=== PATIENT | female | born 2000 | race Caucasian/White ===

== ENCOUNTER 2022-10-01 07:48 | Emergency (ER) | payer BC ==
--- OUTSIDE RECORDS SUMMARY | 2022-10-01 07:53 | XMS REPORT | Continuity of Care Document ---
:2000 Author Organization [facility] t Address [address] [place] [address] Care Team Providers Name Role Phone MISAEL BRICEÑO Primary Care Physician Unavailable Mani Padron Attending Clinician Unavailable KATJA BUSCH Attending Clinician Unavailable Misael Briceño MD Attending Clinician MISAEL BRICEÑO Attending Clinician Unavailable Doctor Unassigned, [place] Attending Clinician Unavailable Katja Busch PA-C Attending Clinician Arya Alvarez CRNA Attending Clinician Nati Gutierrez CRNA Attending Clinician Carmelina Thomas MD, Leonard Attending Clinician Only, Adc Test Attending Clinician Unavailable 2, Adc Lab Attending Clinician Unavailable Ultrasound, Adc Mfm Attending Clinician Unavailable Reed Hoffman MD Attending Clinician Ultrasound, Ang-Mfm Attending Clinician Unavailable Louisa Hughes MD Attending Clinician Yonas Beckman MD Attending Clinician Daphne Scott MD Attending Clinician DAPHNE SCOTT Attending Clinician Unavailable MISAEL BRICEÑO Admitting Clinician Unavailable DERICK RIOS Admitting Clinician Unavailable Misael Briceño MD Admitting Clinician Payers Payer Name Policy Type Policy Number Effective Date Expiration Date S arnav [facility] [id number] 2020 00:00:00 [facility] [id number] 2020 00:00:00 [facility] [id number] 2015 PPO 00:00:00 Problems Condition Condition Condition Status Onset Resolution Last Treating Co mments Source Name Details Category Date Date Treatment Clinician Date Nexplanon Nexplanon Disease Active 2020-[address] in place 0-12 ity of 00:00: [address] Allergies, Adverse Reactions, Alerts Allergy Allergy Status Severity Reaction(s) Onset Inactive Treating Comm ents Source Name Type Date Date Clinician No Known DA Active U 2020-0 [facility] 00 [facility] No Known DA Active U 2020-0 [facility] All[facility]ie 6[facility] 00 [facility] NO KNOWN Drug Active Univers ALLERGIE Class ity of S [facility] Social History Social Habit Start Date Stop Date Quantity Comments Source Exposure to Not sure University of SARS-CoV-2 [place] [facility] (event) Branch History SDME University o f Alcohol Frequency [place] [facility] History [facility] University o f Alcohol Std [place] [facility] Drinks Branch History [facility] University o f Alcohol Binge [place] [facility] Alcohol intake 2021-07-14 2021-07-14 Ex-drinker University of 00:00:00 00:00:00 (finding) [facility] Tobacco use and 2020-09-15 2020-09-15 Never used Universit y of exposure 00:00:00 00:00:00 [facility] Alcohol Comment 2019-06-13 2019-06-13 every weekend Univer sity of 00:00:00 00:00:00 [facility] Sex Assigned At [birth year] Universit y of 00:00:00 00:00:00 [facility] Smoking Status Start Date Stop Date Source Never smoker [facility] Medications Ordered Filled Start Stop Current Ordering Indication Dosage Frequency Signature Comments Components Source Medication Medication Date Date Medication? Clinician (SIG) Name Name etonogestre 2020-10- No [id number] 68mg Univers L 0-12 10-12 ity of (NEXPLANON) 23:15: 22:09 [place] implant 68 00 :00 Medical mg Branch etonogestre 2020-10- No [id number] 68mg 68 mg, Univers L 0-12 10-12 Subdermal, ity of (NEXPLANON) 23:15: 22:09 ONCE NOW, [place] implant 68 00 :00 1 dose, On Med ical mg e Branch 07/14/21 at 1815, Routine
Use approved by: WEB PRESS OPERATOR No known 2020-10 No Univers medications 0-12 ity of 17:07: [address] Branch acetaminoph 2020- No [id number] 650mg Take 2 Univers en 325 mg 8-11 10-12 tablets by ity of tablet 00:00: 00:00 mouth [place] 00 :00 every 6 Medical (six) Branch hours as needed for Pain (scale 1-3) or Pain (scale 4-6). 2020- No [id number] 1{tbl} Take 1 Univers vitamin 8-11 10-12 tablet by ity of w/FA tablet 00:00: 00[place] :[place] daily. Medical [place] ferrous 2020- No [id number] 325mg Take 1 Un laila sulfate 325 8-11 10-12 tablet by it y of mg (65 mg 00:00: 00:00 [place] iron) 00 :00 (two) Medical tablet times Branch daily. ibuprofen 2020- No [id number] 600mg Take 1 Univers 600 mg 8-11 10-12 tablet by ity of tablet 00:00: 00:00 mouth [place] 00 :00 every 6 Medical (six) Branch hours as needed (Pain). Take with food or milk. Immunizations Ordered Filled Immunization Date Status Comments Sourc e Immunization Name Name Rho (d) Immune 2021-05-12 Completed University of Globulin 00:00:00 [facility] Rho (d) Immune 2021-05-12 Completed University of Globulin 00:00:00 [facility] TDAP 2021-02-18 Completed University of 00:00:00 [facility] Rho (d) Immune 2021-02-18 Completed University of Globulin 00:00:00 [facility] TDAP 2021-02-18 Completed University of 00:00:00 [facility] Rho (d) Immune 2021-02-18 Completed University of Globulin 00:00:00 [facility] Rho (d) Immune 2020-10-09 Completed University of Globulin 00:00:00 [facility] Rho (d) Immune 2020-10-09 Completed University of Globulin 00:00:00 [facility] Influenza Virus 2020-10-01 Completed Universit y of Vaccine Quad .5 mL 00:00:00 [facility] 6+ [place] Branch Influenza Virus 2020-10-01 Completed Universit y of Vaccine [place] .5 mL 00:00:00 [facility] 6[facility] [place] Vital Signs Vital Name Observation Time Observation Value Comments Source Systolic blood 2021-07-14 21:17:00 108 mm[Hg] Univer sity of pressure [facility] Diastolic blood 2021-07-14 21:17:00 68 mm[Hg] Unive rsity of pressure [facility] Heart rate 2021-07-14 21:17:00 72 /min [facility] Body temperature 2021-07-14 21:17:[address] [facility] Res[facility] rate 2021-07-14 21:17:00 16 /min [facility] Body height 2021-07-14 21:17:00 149.9 cm [facility] Body weight 2021-07-14 21:17:00 76.658 kg [facility] BMI 2021-07-14 21:17:00 34.13 kg/m2 [facility] Procedures Procedure Date / Time Performing Clinician Source Performed POCT TEST 2021-07-14 21:18:00 Misael Briceño [facility] CONSENT FOR 2021-07-14 05:01:00 Doctor Unassday, Filomena Mezaer [facility] [place] CONTRACEPTION Name [facility] [id number] 2020-04-18 00:00:00 STOGR [facility] [id number] 2020-04-18 00:00:00 [facility] En[facility] Start End Encounter Admission Attending Care Care Encounter Source Date/Time Date/Time Type Type Clinicians Facility Department ID 2021-08-03 Outpatient P [facility] CELSO [id number] Univers 13:20:06 ity [facility] 2021-08-01 Emergency [facility] [id number] Univers 15:35:00 ity [facility] 2020-04-18 Inpatient HASMUKH Padron, JONELTO DAYS [id number] [facility] 13:00:00 Mani [facility] [place] [facility] 2021-12-07 2021-12-07 Outpatient Ena BUSCH [facility] [id number] Univers 14:00:00 14:00:00 [facility] 2021-07-14 2021-07-14 Office Misael Briceño [facility] [id number] Univers 15:58:42 16:49:23 Visit Todd Armenta [id number] i [place] [id number] [phone] In dical [address] 2021-07-14 2021-07-14 Outpatient R MISAEL BRICEÑO [facility] [id number] Univers 16:00:00 16:00:00 ity [facility] 2021-07-14 2021-07-14 Orders Doctor SANDOVAL [id number] Univers 00:00:00 00:00:00 Only Unassigned, EVERARDO 350.1.13.10 ity of [place] [facility] [id number] Shadi as [phone] [address] 2021-07-13 2021-07-13 Outpatient R MISAEL BRICEÑO [facility] [id number] Univers 09:00:00 09:00:00 ity [facility] 2021-07-08 2021-07-08 Telephone Misael Briceño [facility] 1.2.840.114 [id number] Univers 00:00:00 00:00:00 Cam Kathi [id number] i [id number] [phone] [address] 2021-06-22 2021-06-22 Outpatient R NARAYAN [facility] [id number] Univers 08:30:00 08:30:00 KATJA [facility] 2021-06-18 2021-06-18 Office [facility] [id number] [id number] Univers 09:49:45 10:12:49 Visit Todd Armenta 350.1.13.10 i [place] [id number] [phone] [address] 2021-06-18 2021-06-18 Outpatient R NAVARRO MISAEL [facility] [id number] Univers 09:45:00 09:45:00 ity [facility] 2021-06-09 2021-06-09 [facility] 1.2.120.178 [id number] Univers 11:15:24 11:57:47 Katja Armenta 350.1.13.10 ity of [id number] [phone] [address] 2021-06-09 2021-06-09 [facility] 1.2.072.075 [id number] Univers 11:15:24 11:57:47 Katja Armenta 350.1.13.10 ity [place] [phone] [address] 2021-06-09 2021-06-09 Outpatient R NARAYAN [facility] [id number] Univers 11:15:00 11:15:00 KATJA ornelas [facility] 2021-06-09 2021-06-09 Telephone Narayan [facility] 1.2.840.114 [id number] Univers 00:00:00 00:00:00 Katja Tri[place]i 350.1.13.10 i [place] 4[place] [phone] In dical nal [address] [place] [address] 2021-06-09 2021-06-09 [facility]phone [facility] 1.2.840.114 [id number] Univers 00:00:00 00:00:00 Katja Tripoli 350.1.13.10 i [place] [id number] [phone] In dical nal [address] [place] [address] 2021-05-18 2021-05-18 Routine Misael Briceño [facility] [id number] Univers 09:13:02 10:46:42 Todd Armenta [id number] ity of Visit [id number] [phone] [address] 2021-05-18 2021-05-18 Outpatient R MISAEL BRICEÑO [facility] [id number] Univers 09:00:00 09:00:00 ity of [facility] 2021-05-11 2021-05-13 Hospital Misael Briceño [facility] 1.2.840.114 [id number] Univers 04:04:00 13:20:00 Encounter Todd Armenta 350.1.13.10 [place] [phone] [address] 2021-05-12 2021-05-12 Anesthesia [facility] 1.2.840.114 [id number] Univers 20:03:16 20:03:16 Event Arya Armenta 350.1.13.10 i [place] [phone] [address] 2021-05-11 2021-05-11 Anesthesia Nati Gutierrez [facility] 1.2. 840.114 [id number] Univers 15:17:00 20:07:00 Event Rafael Cosmeton 350.1.13.10 ity of [place] 4.2.7.2.686 [facility] [phone] [facility] 083 Branch 2021-05-11 2021-05-11 Surgery Misael Briceño [facility] 1.2.478.786 [id number] Univers 00:00:00 00:00:00 Cam Tripoli 350.1.13.10 i ty of [place] 4.2.7.2.686 [facility] [phone] [facility] 013 Branch 2021-05-08 2021-05-08 Laboratory Only, Adc Test [facility] 1.2.840. 114 [id number] Univers 14:45:08 15:00:08 Only Misael Briceño Todd Armenta 350.1.13.10 ity of [place] 4.2.7.2.686 [facility] [phone] [facility] 353 Branch 2021-05-08 2021-05-08 Outpatient R MISAEL BRICEÑO [facility] [id number] Univers 14:30:00 14:30:00 ity of [facility] 2021-05-07 2021-05-07 [facility]ine [facility] [id number] Univers 08:12:02 08:27:02 Todd Armenta 350.1.13.10 ity of Visit [place] 4.2.7.2.686 [facility] s Professio [phone] In dic[address] 2021-05-07 2021-05-07 Outpatient R MISAEL BRICEÑO [facility] [id number] Univers 08:15:00 08:15:00 ity of [facility] 2021-05-01 2021-05-01 Telephone [facility] 1.2.840.114 [id number] Univers 00:00:00 00:00:00 Cam Tri[place] 350.1.13.10 [place] [phone] In dical nal [address] [facility] 2021-04-30 2021-04-30 Car Attendant 2, Adc Lab [facility] 1.2.840.114 [id number] Univers 14:46:24 15:01:24 Visit Katja Busch 350.1.13.10 it[place] 4[place] [phone] In dical nal [address] [facility] 2021-04-30 2021-04-30 Routine Narayan [facility] 1.2.697.526 [id number] Univers 13:31:56 14:19:29 Katja Armenta 350.1.13.10 ity of Visit [place] 4[place]2.[place].2.[place] [phone] In dical nal [address] [facility] 2021-04-30 2021-04-30 Outpatient R NARAYAN [facility] [id number] Univers 13:30:00 13:30:00 KATJA ity [facility] 2021-04-30 2021-04-30 Orders Doctor JAIME 1.2.840.114 [id number] Univers 00:00:00 00:00:00 Only Unassigned, EVERARDO 350.1.13.10 ity of [place] [facility] 4.2.7.2.686 Shadi as [phone] [address] 2021-04-23 2021-04-23 Car Attendant Ultrasound, Adc [facility] 1.2 .840.114 [id number] Univers 14:25:21 14:55:21 Visit Reed Hoffman 350.1.13. 10 [place] [phone] In dical nal [address] [facility] 2021-04-23 2021-04-23 Outpatient P [facility] [id number] Univers 14:30:00 14:30:00 ity of [facility] 2021-04-23 2021-04-23 Telephone Misael Briceño [facility] 1.2.840.114 [id number] Univers 00:00:00 00:00:00 Todd Armenta 350.1.13.10 i [place] 4[place] [phone] In dical nal [address] [facility] 2021-04-14 2021-04-14 Routine Misael Briceño [facility] [id number] Univers 13:59:43 15:24:51 Cam Tripoli 350.1.13.10 ity of [place] 4.2.[place].2.[place] [phone] In dical [address] 2021-04-14 2021-04-14 Outpatient R NAVARRO MISAEL [facility] [id number] Univers 14:00:00 14:00:00 ity of [facility] 2021-04-07 2021-04-07 Outpatient R NAVARRO [facility] [id number] Univers 15:30:00 15:30:00 ity of [facility] 2021-03-25 2021-03-25 Routine [facility] 1.2.265.526 [id number] Univers 09:09:56 09:34:18 Cam Tripoli 350.1.13.10 ity of [place] 4[place]2.7.2.[place] [phone] [address] 2021-03-25 2021-03-25 Outpatient R NAVARRO [facility] [id number] Univers 09:15:00 09:15:00 ity of [facility] 2021-03-25 2021-03-25 Telephone [facility] 1.2.840.114 [id number] Univers 00:00:00 00:00:00 Cam Tripoli 350.1.13.10 i [place] 4[place]2.7.2.[place] [phone] In dicaz nal [address] [place] [address] 2021-03-19 2021-03-19 Routine Narayan [facility] 1.2.970.468 [id number] Univers 15:57:38 16:29:58 Katja Tripoli 350.1.13.10 ity [place] 4[place].2.[place] [phone] [address] 2021-03-19 2021-03-19 Outpatient R NARAYAN [facility] [id number] Univers 16:15:00 16:15:00 KATJA ity [facility] 2021-03-18 2021-03-18 Outpatient R NARAYAN [facility] [id number] Univers 15:00:00 15:00:00 KATJA ity [facility] 2021-02-18 2021-02-18 Car Attendant 2, Adc Lab [facility] 1.2.840.114 [id number] Univers 14:03:56 14:18:56 Visit Misael Briceño Cam [place] 350.1.13.10 it[place] 4[place]2.7.2.[place] [phone] In dicalis galvez [address] [facility] 2021-02-18 2021-02-18 Routine [facility] 1.2.166.418 [id number] Univers 13:30:37 14:00:24 Cam Tripoli 350.1.13.10 ity of [place] 4[place]2.7.2.[place] [phone] In dical nal [address] [facility] 2021-02-18 2021-02-18 Outpatient R MISAEL BRICEÑO [facility] [id number] Univers 13:30:00 13:30:00 ity of [facility] 2021-01-21 2021-01-21 Routine [facility] [id number] Univers 13:35:40 14:16:02 Katja Armenta 350.1.13.10 ity of [place] 4[place]2.7.2.[place] [phone] In dical nal [address] [place] [address] 2021-01-21 2021-01-21 Outpatient R NARAYAN [facility] [id number] Univers 13:30:00 13:30:00 KATJA ity [facility] 2021-01-20 2021-01-20 Telephone BriceñoKatharineen [facility] 1.2.840.114 [id number] Univers 00:00:00 00:00:00 Cam Tripoli 350.1.13.10 i [place] 4[place].2.[place] [phone] In dical nal [address] [facility] 2021-01-01 2021-01-01 Hospital Misael Briceño [facility] 1.2.840.114 [id number] Univers 15:00:00 23:59:00 Encounter Cam Kathi 350.1.13.10 [place].2.[place] [phone] [facility] [address] [place] 2021-01-01 2021-01-01 Car Attendant Ultrasound, Mary [facility] 1.2 .840.114 [id number] Univers 13:42:46 14:42:46 Visit Louisa Hughes WEB PRESS OPERATOR 350.1.13.10 ity of [facility] 4.2.7.2.686 Shadi as MATERNAL [phone] Med ical & CHILD [address] [place] [address] 2021-01-01 2021-01-01 Outpatient P [facility] [id number] Univers 13:30:00 13:30:00 ity of [facility] 2021-01-01 2021-01-01 Orders Doctor JAIME 1.2.840.114 [id number] Univers 00:00:00 00:00:00 Only Unassigned, EVERARDO 350.1.13.10 ity of [place] [facility] 4.2.7.2.686 Shadi as [phone] [facility] [address] [place] 2020-12-24 2020-12-24 Routine Misael Briceño [facility] 1.2.387.649 [id number] Univers 13:30:44 14:35:05 Cam Kathi 350.1.13.10 ity of [place] 4[place].2.[place] [phone] In dicalis nal [address] [facility] 2020-12-24 2020-12-24 Outpatient R MISAEL BRICEÑO [facility] [id number] Univers 13:30:00 13:30:00 ity of [facility] 2020-12-17 2020-12-17 Telephone Misael Briceño [facility] 1.2.840.114 [id number] Univers 00:00:00 00:00:00 Cam Tripoli 350.1.13.10 i [place] 4[place]2.[place].2.[place] [phone] In dical nal [address] [facility] 2020-12-17 2020-12-17 Telephone Misael Briceño [facility] 1.2.840.114 [id number] Univers 00:00:00 00:00:00 Cam Tripoli 350.1.13.10 i ty [place] 4[place]2.[place].2.[place] [phone] In dical nal [address] [facility] 2020-11-26 2020-11-26 Car Attendant 2, Adc Lab [facility] 1.2.840.114 [id number] Univers 14:19:14 14:34:14 Visit Katja Busch 350.1.13.10 it[place] of [place] 4[place]2.[place].2.[place] [phone] [facility] [address] [facility] 2020-11-26 2020-11-26 Routine Narayan [facility] 1.2.519.442 [id number] Univers 13:29:14 13:44:14 Katja Armenta 350.1.13.10 ity of [place] 4[place]2.[place] [phone] [facility] [address] [facility] 2020-11-26 2020-11-26 Outpatient R NARAYAN [facility] [id number] Univers 13:00:00 13:00:00 KATJA itciara [facility] 2020-11-06 2020-11-06 Telephone Misael Briceño [facility] 1.2.840.114 [id number] Univers 00:00:00 00:00:00 Todd Armenta 350.1.13.10 i [place] 4[place]7.2.[place] [phone] In dical nal [address] [facility] 2020-11-03 2020-11-03 Telephone Misael Briceño [facility] 1.2.840.114 [id number] Univers 00:00:00 00:00:00 Cam Tri[place]i 350.1.13.10 i [place] 4[place] [phone] In dical nal [address] [facility] 2020-10-31 2020-10-31 Telephone Misael Briceño [facility] 1.2.840.114 [id number] Univers 00:00:00 00:00:00 Cam Tripoli 350.1.13.10 i [place] 4[place].2.[place] [phone] In dical nal [address] [facility] 2020-10-23 2020-10-23 Car Attendant 2, Adc Lab [facility] 1.2.840.114 [id number] Univers 08:30:06 08:45:06 Visit Misael Briceño [place] 350.1.13.10 it[place] of [place] 4[place].2.[place] [phone] In dical nal [address] [facility] 2020-10-23 2020-10-23 Outpatient R [facility] [id number] Univers 08:30:00 08:30:00 ity of [facility] [place] [facility] 2020-10-22 2020-10-22 Outpatient R [facility] [id number] Univers 16:15:00 16:15:00 ity of [facility] [place] [facility] 2020-10-22 2020-10-22 Routine Misael Briceño [facility] [id number] Univers 15:11:45 16:09:43 Todd Tripoli 350.1.13.10 ity of [place] 4[place].2.[place] [phone] In dical nal [address] [facility] 2020-10-22 2020-10-22 Outpatient R MISAEL BRICEÑO [facility] [id number] Univers 15:30:00 15:30:00 ity of [facility] [place] [facility] 2020-10-10 2020-10-10 Letter Misael Briceño [facility] 1.2.344.666 [id number] Univers 00:00:00 00:00:00 (Out) Cam Tripoli 350.1.13.10 i [place] [phone] In dical nal [address] [facility] 2020-10-10 2020-10-10 Letter Misael Briceño [facility] 1.2.310.282 [id number] Univers 00:00:00 00:00:00 (Out) Cam Tripoli 350.1.13.10 i [place] 4[place].2.[place] [phone] In dical nal [address] [place] [address] 2020-10-09 2020-10-09 Outpatient R MISAEL BRICEÑO [facility] [id number] Univers 13:00:00 13:00:00 ity of [facility] [place] [facility] 2020-10-09 2020-10-09 Routine Misael Briceño [facility] 1.2.295.154 [id number] Univers 12:37:22 12:52:22 Cam Tripoli 350.1.13.10 ity of [place] 4[place].2.[place] [phone] In dical nal [address] [place] [address] 2020-10-09 2020-10-09 Emergency [facility] 1.2.439.912 [id number] Univers 03:09:00 08:08:00 Yonas [place] 350.1.13.10 i [place] [phone] [address] 2020-10-09 2020-10-09 Telephone Misael Briceño [facility] 1.2.840.114 [id number] Univers 00:00:00 00:00:00 Cam Tri[place]i 350.1.13.10 i ty of [place] 4.2.[place].2.[place] [phone] In dical nal [address] [place] [address] 2020-10-09 2020-10-09 Telephone Misael Briceño [facility] 1.2.840.114 [id number] Univers 00:00:00 00:00:00 Cam Tri[place]i 350.1.13.10 i ty of [place] 4[place]2.[place].2.[place] [phone] In dical nal [address] [place] [address] 2020-10-01 2020-10-01 Routine Misael Briceño [facility] 1.2.185.698 [id number] Univers 15:20:42 15:35:42 Cam Tri[place]i 350.1.13.10 ity of [place] 4[place]2.[place].2.[place] [phone] In dical nal [address] [place] [address] 2020-10-01 2020-10-01 Outpatient R MISAEL BRICEÑO [facility] [id number] Univers 15:30:00 15:30:00 ity of [facility] 2020-10-01 2020-10-01 Orders Doctor JAIME 1.2.840.114 [id number] Univers 00:00:00 00:00:00 Only Unassigned, EVERARDO 350.1.13.10 ity of [facility] 4.2.7.2.686 Shadi as [phone] [address] 2020-09-15 2020-09-15 Initial [facility] [id number] Univers 13:52:59 16:02:55 Todd Armenta 350.1.13.10 ity [place] [phone] [address] 2020-09-15 2020-09-15 Outpatient R NAVARRO MISAEL [facility] [id number] Univers 14:15:00 14:15:00 ity of [facility] 2020-06-19 2020-06-19 Office [facility] [id number] Univers 09:33:25 10:03:25 Visit Katja Armenta 350.1.13.10 i [place] of [place] [phone] [address] 2020-06-19 2020-06-19 [facility] [id number] Univers 09:30:00 09:30:00 KATJA itciara of [facility] [place] [facility] 2020-06-19 2020-06-19 Orders Doctor SANDOVAL [id number] Univers 00:00:00 00:00:00 Only Unassigned, EVERARDO 350.1.13.10 ity of [facility] 4.2.7.2.686 Shadi as [phone] [address] 2020-05-30 2020-05-30 [facility] [id number] Univers 00:00:00 00:00:00 Daphne Armenta 350.1.13.10 [place] of [place] [phone] In dical nal [address] [place] [address] 2020-05-22 2020-05-22 Case [facility], [facility] [id number] Univers 00:00:00 00:00:00 Management Daphne rAmenta 350.1.13.10 ity of [place] [phone] In dic[address] 2020-05-19 2020-05-19 Office Ad, [facility] 1.2.840.114 [id number] Univers 12:44:20 13:51:55 Visit Daphne Armenta 350.1.13.10 ity of [place] [phone] In dicaz nal [address] [place] [address] 2020-05-19 2020-05-19 Outpatient R [facility] [id number] Univers 13:00:00 13:00:00 DAPHNE ity of [facility] [place] [facility] 2020-05-19 2020-05-19 Orders Doctor JAIME 1.2.840.114 [id number] Univers 00:00:00 00:00:00 Only Unassigned, EVERARDO 350.1.13.10 ity of [place] [facility] 4.2.7.2.686 Shadi as [phone] [address] 2020-04-19 2020-04-19 Outpatient Stocks, [facility] SIST [id number] [facility] 13:03:00 13:03:00 Mani [facility] 2020-03-20 2020-03-20 Outpatient Stocks, [facility] [id number] [facility] 18:51:00 18:51:00 Mani 19 Psychiatric 2019-06-14 2019-06-14 [facility] [id number] Univers 00:00:00 00:00:00 Management Katja Kathi 350.1.13.10 ity of [place] [phone] In dic[address] 2019-06-14 2019-06-14 Wayne Busch [facility] 1.2.825.116 [id number] 00:00:00 00:00:00 Management Katja Armenta 350.1.13.10 [place] 4.2.7.2.686 Professio [phone] [address] 2019-06-13 2019-06-13 Car Attendant 2, Adc Lab [facility] 1.2.840.114 [id number] [facility] 10:13:45 10:28:45 Visit Katja Busch 350.1.13.10 [place] [phone] [address] 2019-06-13 2019-06-13 Car Attendant 2, Adc Lab [facility] 1.2.840.114 [id number] 10:13:45 10:28:45 Visit Kathi 350.1.13.10 [place] 4.2.7.2.686 Professio [phone] [address] 2019-06-13 2019-06-13 Office Narayan [facility] [id number] [facility] 09:01:07 10:06:39 Visit Katja Armenta 350.1.13.10 i ty of [place] [phone] [address] 2019-06-13 2019-06-13 Office Narayan [facility] [id number] [id number] 09:01:07 10:06:39 Visit Katja Armenta 350.1.13.10 [place] 4.2.7.2.686 Professio [phone] [address] Results Test Description Test Time Test Comments Results Result Comments Source POCT TEST 2021-07-14 21:18:00 Test Item Value Reference Range Interpretation Comme nts POCT PREG (test code = 1605) Negative On board controls acceptable with C Yes Line (test code = 3574) POCT PREG LOT # (test code = 3575) POCT PREG TEST DATE (test code = 3576) MAXIMO (test code = MAXIMO) accurate development and interpretation of all internal controls [facility]- XR PELVIS 1/2 [id number] 10:08:00 Patient Name: KAT COFFEY Unit No: [id number] EXAMS: CPT CODE: [id number] XR PELVIS 1/2 VIEWS 72011 AP VIEW OF THE PELVIS. COMMENT: In progress total left hip arthroplasty. AP view of the pelvis COMMENT: COMPARISON: No prior exams available. Completed total left hip arthroplasty. Prosthesis appears to be in good position. at 1008 Reported and signed by: Sukhjinder Rios M.D. CC: Mani Padron MD Technologist: SUSANNA CRUZ (RT.R) [facility] NAME: KAT COFFEY [address] [place] [address] PHYS: Mani Pelaez MD : 2000 AGE: 19 SEX: F [place] [address] LOC: Y.504 A PHONE #: [phone] EXAM DATE: 04/18/2020 STATUS: DIS IN FAX #: [phone] RAD #: D/C DT 04/20/2020 PAGE 1 Signed Report Patient Name: KAT COFFEY Unit No: [id number] EXAMS: CPT CODE: [id number] XR PELVIS 1/2 VIEWS 20212 (Continued) Transcribed D/ (1008) t.MARIA ISABELR.[facility] NAME: KAT COFFEY [address] [place] [address] PHYS: Mani Pelaez MD : 2000 AGE: 19SEX: F [place] [address] LOC: Y.504 A PHONE #: [phone] EXAM DATE: 04/18/2020 STATUS: DIS IN FAX #: [phone] RAD #: D/C DT 04/20/2020 PAGE 2 Signed Report- XR PELVIS 1/2 VIEWS 2020-04-21 10:08:00 Patient Name: KAT COFFEY Unit No: [id number] EXAMS: CPT CODE: [id number] XR PELVIS 1/2 VIEWS 43571 AP VIEW OF THE PELVIS. COMMENT: In progress total left hip arthroplasty. AP view of the pelvis COMMENT: COMPARISON: No prior exams available. Completed total left hip arthroplasty. Prosthesis appears to be in good position. at 1008 Reported and signed by: Sukhjinder Rios M.D. CC: Mani Padron MD Technologist: ODIN (RT.R) Transcribed D/ (1008) FlorentinoSLJ [facility] [address] [place] [address] PHYS: Mani Pelaez MD : 2000 AGE: 19 SEX: F [place], [place] LOC: Y.504 A PHONE #: [phone] EXAM DATE: 04/18/2020 STATUS: DIS INFAX #: [phone] RAD #: D/C DT 04/20/2020 PAGE 1 Signed Report [facility] Unit No: [id number] EXAMS: CPT CODE: [id number] XR PELVIS 1/2 VIEWS 78861 (Continued) Orig Print D/T: S:04/21/2020 (1011) [facility] NAME: ALEXXRATNA HENRY[address] PHYS: Mani Pelaez MD : 2000 AGE: 19 SEX: F [place], [place] [address] LOC: Y.504 A PHONE #: [phone] EXAM DATE: 04/18/2020 STATUS: DIS IN FAX #: [phone] RAD #: D/C DT 04/20/2020 PAGE 2 Signed ReportBASIC METABOLIC PANEL 2020-04-19 13:56:00 Test Item Value Reference Range Interpretation Comments SODIUM (test code = NA) 139 mEq/L 135-145 N POTASSIUM (test code = K) 4.8 mEq/L 3.5-5.0 N CHLORIDE (test code = CL) 104 mEq/L 100-115 N CARBON DIOXIDE (test code = CO2) 29 mEq/L 22-31 N GLUCOSE (test code = GLU) 85 mg/dL 65-110 N BLOOD UREA NITROGEN (test code = 10 mg/dL 7-18 N BUN) GLOMERULAR FILTRATION RATE (test 126 ml/min >60 N code = GFR) CREATININE (test code = CREAT) 0.6 mg/dL 0.5-1.0 N CALCIUM (test code = CA) 7.8 mg/dL 8.4-10.2 L BASIC METABOLIC [id number] 13:56:00 Test Item Value Reference Range Interpretation Comments SODIUM (test code = NA) 139 mEq/L 135-145 POTASSIUM (test code = 4.8 mEq/L 3.5-5.0 K) CHLORIDE (test code = 104 mEq/L 100-115 CL) CARBON DIOXIDE (test 29 mEq/L 22-31 code = CO2) GLUCOSE (test code = 85 mg/dL 65-110 GLU) BLOOD UREA NITROGEN 10 mg/dL 7-18 (test code = BUN) GLOMERULAR FILTRATION 126.2 >60 Unit o f measure: RATE (test code = GFR) mL/mi n/1.73 [id number] Range:Healthy A dults >90 mL/min/1.73 m2 For Chronic Kid perez Disease: Stage II Mild Decrease i n GFR 60-90 Stage III Moderate Decrea se in GFR 30-59 Stage IV Severe Decrease in GFR 15-29 Stage V Kidney Failure <15Unit of noam ure: mL/min/1.73 [id number] Range:Healthy A dults >90 mL/min/1.73 m2 For Chronic Kid perez Disease: Stage II Mild Decrease i n GFR 60-90 Stage III Moderate Decrea se in GFR 30-59 Stage IV Severe Decrease in GFR 15-29 Stage V Kidney Failure <15 CREATININE (test code = 0.6 mg/dL 0.5-1.0 CREAT) CALCIUM (test code = 7.8 mg/dL 8.4-10.2 L CA) HGB [id number] 13:33:00 Test Item Value Reference Range Interpretation Comments HEMOGLOBIN (test code = HGB) 10.0 g/dL 10.7-13.9 L HEMATOCRIT (test code = HCT) 31.4 % 32.1-42.1 L HGB [id number] 13:33:00 Test Item Value Reference Range Interpretation Comments HEMOGLOBIN (test code = HGB) 10.0 g/dL 10.7-13.9 L HEMATOCRIT (test code = HCT) 31.4 % 32.1-42.1 L Novel Coronavirus 2019 [id number] 06:09:00 Test Item Value Reference Range Interpretation Comments Novel Coronavirus 2019 Inhouse (test Negative Negative code = COVNONPUI) Novel Coronavirus 2019 [id number] 06:08:00 Test Item Value Reference Range Interpretation Comments Novel Coronavirus 2019 Inhouse (test Negative Negative code = COVNONPUI) COMPREHENSIVE METABOLIC [id number] 18:38:00 Test Item Value Reference Range Interpretation Comments SODIUM (test code = 142 mmol/L 136-145 N NA) POTASSIUM (test code = 4.5 mmol/L 3.5-5.1 N K) CHLORIDE (test code = 104.0 mmol/L 98-107 N CL) CARBON DIOXIDE (test 31.0 mmol/L 21-32 N code = CO2) GLUCOSE (test code = 79 mg/dL 70-110 N GLU) BLOOD UREA NITROGEN 14 mg/dL 7-18 N (test code = BUN) GLOMERULAR FILTRATION 93.2 >60 Unit o f measure: RATE (test code = GFR) mL/mi n/1.73 [id number] Range:Healthy Adults >90 mL/min/1.73 m2 For Chronic Kidney Disease: Stage II Mild Decrease i n GFR 60-90 Stage III Moderate Decrea se in GFR 30-59 St age IV Severe Decre ase in GFR 15-29 S tage V Kidney Failur e <15 CREATININE (test code 0.78 mg/dL 0.55-1.30 N = CREAT) TOTAL PROTEIN (test 7.4 g/dL 6.4-8.2 N code = PROT) ALBUMIN (test code = 4.0 g/dL 3.4-5.0 N ALB) GLOBULIN (test code = 3.4 g/dL 2.2-4.2 N GLOB) ALBUMIN/GLOBULIN RATIO 1.2 0.7-2.0 N (test code = A/G) CALCIUM (test code = 9.4 mg/dL 8.2-10.1 N CA) BILIRUBIN TOTAL (test 0.40 mg/dL 0.2-1.00 N code = BILT) SGOT/AST (test code = 15.0 U/L 15-37 N AST) SGPT/ALT (test code = 23.0 U/L 12-78 N Please note new ALT) normal range. ALKALINE PHOSPHATASE 79 U/L 46-116 N TOTAL (test code = ALKP) PROTHROMBIN [id number] 15:15:00 Test Item Value Reference Range Interpretation Comments PROTHROMBIN TIME 12.1 secs 10.1-12.5 N PATIENT (test code = PTP) INTERNATIONAL NORMAL 1.08 <2.0 RECOMME NDED THERAPEUTIC RATIO (test code = RANGE FOR ORAL INR) ANTICOAGULANTTR EATMENT: CONDITION INRPr ophylaxis of venous throm bosis in 2.0 - 3.0 high- risk medical or surg ical patientsTreatme nt of venous thrombos is 2.0 - 3.0Prevention o f embolism 2.0 - 3.0Prevention o f recurrent embol ism, or 3.0 - 4.5 patie nts with mechanical pros thetic intravascular v hernandez IS PATIENT ON ANTICOAGULANTS ? NHas Lab been notified if Patient is on Heparin Drip? NOIf Yes, orderCBC, OCCULT BLOOD, PT every other day NTHROMBOPLASTIN TIME [id number] 15:15:00 Test Item Value Reference Range Interpretation Comments PTT ACTIVATED (test code = APTT) 36.3 secs 24.9-37.0 N IS PATIENT ON ANTICOAGULANTS ? NHas Lab been notified if Patient is on Heparin Drip? NOIf Yes, orderCBC, OCCULT BLOOD, PT every other day NCBC W/AUTO DIFF 2020-03-20 14:35:00 Test Item Value Reference Range Interpretation Comments WHITE BLOOD CELL (test code = WBC) 6.4 K/mm3 5.8-11.0 N RED BLOOD CELL (test code = RBC) 5.07 M/mm3 4.2-5.4 N HEMOGLOBIN (test code = HGB) 15.3 g/dL 12-16 N HEMATOCRIT (test code = HCT) 44.4 % 37-47 N MEAN CELL VOLUME (test code = MCV) 88 fL 80-98 N MEAN CELL HGB (test code = MCH) 30.2 pg 27-34 N MEAN CELL HGB CONCENTRATION (test 34.5 g/dL 30.8-34.1 H code = MCHC) RED CELL DISTRIBUTION WIDTH (test 12.5 % 11-16 N code = RDW) PLT (test code = PLT) 226 K/mm3 130-400 N MEAN PLATELET VOLUME (test code = 12.8 fL 8.9-12.1 H MPV) NEUTROPHIL % (test code = NT%) 61.4 % 45-70 N LYMPHOCYTE % (test code = LY%) 27.8 % 20-40 N MONOCYTE % (test code = MO%) 7.8 % 3-10 N EOSINOPHIL % (test code = EO%) 1.9 % 1-5 N BASOPHIL % (test code = BA%) 0.8 % 0.0-1.1 N NEUTROPHIL # (test code = NT#) 3.96 K/mm3 2.00-7.50 N LYMPHOCYTE # (test code = LY#) 1.79 K/mm3 1.50-4.00 N MONOCYTE # (test code = MO#) 0.50 K/mm3 0.2-0.8 N EOSINOPHIL # (test code = EO#) 0.12 K/mm3 0.04-0.4 N BASOPHIL # (test code = BA#) 0.05 K/mm3 0.02-0.10 N MANUAL DIFF REQUIRED (test code = NO MANUAL DIFF MDIFF) NUCLEATED RED BLOOD CELL (test 0 % 0-0 N code = NRBC)
[2022-10-01 08:39] LABS: Urine Blood Trace-intact (Negative); Urine Glucose Negative (Negative); Urine Protein Negative (Negative); Urine Specific Gravity 1.015 (1.005-1.030)
[2022-10-01 09:02] LABS: Absolute Lymphocytes (CBC) 1.5 K/uL (0.7-4.9); Hematocrit 41.1 % (36.0-45.0); Lymphocytes % 24.1 % (15.3-44.8); MCV 83.7 fL (80-100); MPV 10.2 fL (7.6-11.3); RBC Red Blood Cell Count 4.91 M/uL (3.86-4.86)
[2022-10-01] MEDS ORDERED: DICYCLOMINE HCL 10 MG CAP ONE (09:20)
[2022-10-01 09:21] LABS: Bilirubin Total 0.6 mg/dL (0.2-1.0); Potassium 3.9 mmol/L (3.5-5.1); Protein, Total 7.6 g/dL (6.4-8.2)
--- NOTE | 2022-10-01 10:50 | EDPHYS ---
Physician Documentation [facility] [place] [facility] Name: Jonny Berger Age: 21 yrs Sex: Female : 2000 Arrival Date: 10/01/2022 Time: 07:52 Bed DIS3 Private MD: ED Physician Parveen Cuellar HPI: 10/01 15:44 This 21 yrs old Female presents to ER via Ambulatory with complaints of Abdominal Pain. kb 15:44 The patient presents with abdominal pain that is diffuse. Onset: The symptoms/episode kb began/occurred 2 day(s) ago. The symptoms do not radiate. Associated signs and symptoms: Pertinent positives: nausea, Pertinent negatives: diarrhea, vomiting. The symptoms are described as crampy. Modifying factors: The symptoms are alleviated by nothing, the symptoms are aggravated by nothing. Severity of pain: At its worst the pain was mild moderate in the emergency department the pain is unchanged. The patient has not experienced similar symptoms in the past. The patient has not recently seen a physician. Pt reports diffuse abd cramping for 2 days, nausea this morning. 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 kb 15:43 Abdomen/GI: Positive for nausea, abdominal cramps, Negative for vomiting, diarrhea. 15:43 All other systems are negative. Exam: 15:43 Constitutional: This is a well developed, well nourished patient who is awake, alert, kb and in no acute distress. Head/Face: Normocephalic, atraumatic. ENT: Moist Mucous membranes Cardiovascular: Regular rate and rhythm with a normal S1 and S2. No gallops, murmurs, or rubs. No pulse deficits. Respiratory: Respirations even and unlabored. No increased work of breathing. Talking in full sentences Abdomen/GI: Soft, non-tender. No distention Skin: Warm, dry with normal turgor. Normal color. MS/ Extremity: Pulses equal, no cyanosis. Neurovascular intact. Full, normal range of motion. Neuro: Awake and alert, GCS 15, oriented to person, place, time, and situation. Moves all extremities. Normal gait. Psych: Awake, alert, with orientation to person, place and time. Behavior, mood, and affect are within normal limits. Vital Signs: 09: BP 122 / 80; Pulse 65; Resp 16; Temp 98.8; Pulse Ox 100% on R/A; Weight 70.31 kg; iw Height 4 ft. 11 in. (149.86 cm); : Body Mass Index 31.31 (70.31 kg, 149.86 cm) iw MDM: 08:19 Patient medically screened. kb 15:43 Data reviewed: vital signs, nurses notes. Data interpreted: Pulse oximetry: on room air kb is 100 %. Interpretation: normal. Counseling: I had a detailed discussion with the patient and/or guardian regarding: the historical points, exam findings, and any diagnostic results supporting the discharge/admit diagnosis, lab results, the need for outpatient follow up, a family practitioner, to return to the emergency department if symptoms worsen or persist or if there are any questions or concerns that arise at home. Response to treatment: the patient's symptoms have markedly improved after treatment. 10/01 08:37 Order name: CBC with Diff; Complete Time: 09:08 kb 10/01 08:37 Order name: CMP; Complete Time: 09:21 kb 10/01 08:37 Order name: Lipase; Complete Time: 09:21 kb 10/01 08:39 Order name: Urine Dipstick-Ancillary; Complete Time: 08:44 EDMS 10/01 08:37 Order name: IV Saline Lock; Complete Time: 08:55 kb 10/01 08:37 Order name: Labs collected and sent; Complete Time: 08:55 kb 10/01 08:37 Order name: Urine Dipstick-Ancillary (obtain specimen); Complete Time: 08:55 kb 10/01 08:37 Order name: Urine Test (obtain specimen); Complete Time: 08:55 kb Administered Medications: 09:21 Drug: Bentyl (dicyclomine) 20 mg Route: PO; iw Disposition: 16:39 Co-signature as Attending Physician, Parveen Cuellar MD. rn Disposition Summary: 10/01/22 10:50 Discharge Ordered Location: Home kb Condition: Stable kb Diagnosis - Abdominal pain, Generalized kb Followup: kb - With: Emergency Department - When: As needed - Reason: Worsening of condition Followup: kb - With: Private Physician - When: 2 - 3 days - Reason: Recheck today's complaints, Continuance of care, Re-evaluation by your physician Discharge Instructions: - Discharge Summary Sheet kb - Viral Gastroenteritis, Adult, [id number] kb - Abdominal Pain, Adult, [id number] kb Forms: - Medication Reconciliation Form kb - Thank You Letter kb - Antibiotic Education kb - Prescription Opioid Use kb Prescriptions: - Zofran 4 mg Oral Tablet - take 1 tablet by ORAL route every 12 hours As needed; 10 tablet; Refills: 0, kb Product Selection Permitted - dicyclomine 20 mg Oral Tablet - take 1 tablet by ORAL route 4 times per day As needed; 20 tablet; Refills: 0, kb Product Selection Permitted Signatures: Dispatcher [employer] Isabel Ocampo, JENNIFER FORD-Sari Hoffman RN RN iw Parveen Cuellar MD MD rn
--- NOTE | 2022-10-01 10:50 | ER ---
Nurse's Notes [facility] Name: Jonny Berger Age: 21 yrs Sex: Female : 2000 Arrival Date: 10/01/2022 Time: 07:52 Bed DIS3 Private MD: Diagnosis: Abdominal pain, Generalized Presentation: 10/01 09:00 Chief complaint: Patient states: abd pain , cramping pain. Coronavirus screen: At this iw time, the client does not indicate any symptoms associated with coronavirus-19. Ebola Screen: Patient negative for fever greater than or equal to 101.5 degrees Fahrenheit, and additional compatible Ebola Virus Disease symptoms Patient denies exposure to infectious person. Patient denies travel to an Ebola-affected area in the 21 days before illness onset. No symptoms or risks identified at this time. Initial Sepsis Screen: Does the patient meet any 2 criteria? No. Patient's initial sepsis screen is negative. Does the patient have a suspected source of infection? No. Patient's initial sepsis screen is negative. Onset of symptoms was October 01, 2022. 09:00 Method Of Arrival: Ambulatory iw 09:07 Risk Assessment: Do you want to hurt yourself or someone else? Patient reports no iw desire to harm self or others. 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 11 in. (149.86 cm); 09:22 Body Mass Index 31.31 (70.31 kg, 149.86 cm) iw ED Course: 07:52 Patient arrived in ED. mr 08:03 Isabel Villareal FNP-C [facility]. kb 08:03 Parveen Cuellar MD is Attending Physician. kb 08:45 Sari Rosario, BALA is Primary Nurse. iw 09:07 Triage completed. iw 09:15 Arm band placed on. iw 10:05 Urine --Ancillary (enter results) Sent. eb Administered Medications: 09:21 Drug: Bentyl (dicyclomine) 20 mg Route: PO; iw Outcome: 10:50 Discharge ordered by . sirisha 10:56 Patient left the ED. Signatures: Isabel Villareal, JENNIFER FORD-Maria Dolores Zee mr Sari Rosario RN RN iw Baxter, Heather, RN RN hb Botello, Elizabeth eb
[2022-10-01 11:01] VITALS: BP 122/80; TEMP 98.8; O2SAT 100
== END 2022-10-01 10:56 | disposition home or self-care (01) ==
LOC: ER 07:48
DX: R10.84 Generalized abdominal pain (principal)
CPT/HCPCS: 36415; 80053; 81003; 83690; 85025; 99283